=== PATIENT | male | born 1990 | race Caucasian/White ===

== ENCOUNTER 2017-12-21 10:30 | Emergency (ER) | payer OTHER ==
[~2017-12-21] VITALS: Ht 160 cm; Wt 67.1 kg
[2017-12-21 10:49] VITALS: Ht 160 cm; Wt 67.1 kg
[2017-12-21 12:44] VITALS: BP 127/88
== END 2017-12-21 12:44 | disposition home or self-care (01) ==
LOC: ED 10:30
DX: S93.402A Sprain of unspecified ligament of left ankle, initial encounter (principal); X50.1XXA Overexertion from prolonged static or awkward postures, initial encounter; Y93.66 Activity, soccer; Y92.89 Other specified places as the place of occurrence of the external cause; Y99.8 Other external cause status